=== PATIENT | male | born 1945 | race Caucasian/White ===

== ENCOUNTER 2016-08-31 08:29 | Day surgery (SDC) | payer MEDICARE, OTHER ==
[2016-08-27 12:07] LABS: HEMOGLOBIN 12.6 g/dL (13.6-17.8)
[2016-08-27 12:38] LABS: A/G RATIO 1.2 (0.7-1.9); ALBUMIN 3.8 G/DL (3.5-5.0); ALKALINE PHOSPHATASE 77 U/L (45-117); BUN (BLOOD UREA NITROGEN) 18 MG/DL (6-23); CALCIUM, SERUM 8.4 MG/DL (8.5-10.4); CHLORIDE, SERUM 104 MMOL/L (96-112); CO2 (CARBON DIOXIDE) 32 MMOL/L (24-34); GFR AFRICAN AMERICAN 103 ML/MIN (>=60); GFR NON AFRICAN AMERICAN 89 ML/MIN (>=60); GLOBULIN 3.1 G/DL (2.5-4.1); GLUCOSE, SERUM 113 MG/DL (60-99); POTASSIUM, SERUM 4.2 MMOL/L (3.5-5.3); SGOT(AST) 10 U/L (5-40); SGPT(ALT) 27 U/L (5-65); SODIUM, SERUM 142 MMOL/L (135-148); TOTAL BILIRUBIN 0.6 MG/DL (0-1.2); TOTAL PROTEIN 6.9 G/DL (6.0-8.5)
--- NOTE | ~2016-08-31 | OP ---
Record Of Operation [facility] [address] [place]. [address] NAME: JOSEFA HOGAN : 43 STATUS : [facility]#: [id number] AGE: 71 ADM/REG DATE : 08/31/16 MR#: [id number] REPORT SERV DATE: 09/02/16 DICTATED BY: JORDON HERNADEZ DATE: 09/01/16 REPORT STATUS : Draft TRANSCRIBED BY: MODL DATE: 09/01/16 DATE OF PROCEDURE: 08/31/2016 PREOPERATIVE DIAGNOSES: 1. Chronic cholecystitis with cholelithiasis. 2. History of biliary pancreatitis. POSTOPERATIVE DIAGNOSES: 1. Chronic cholecystitis with cholelithiasis. 2. History of biliary pancreatitis. PROCEDURES: 1. Laparoscopic cholecystectomy (three-site). 2. Laparoscopic intraoperative cholangiogram. DESCRIPTION OF OPERATIVE PROCEDURE: The patient was brought to the operating suite, placed in supine position, underwent satisfactory general endotracheal anesthesia without incident. The skin of the abdomen was scrubbed, prepped, and draped in usual sterile fashion. 0.5% Marcaine with epinephrine was utilized as supplemental local anesthesia. Initially, an infraumbilical incision was performed dissecting through skin and subcutaneous tissue. The umbilical fascia was grasped with a Jacquie clamp and elevated and a disposable Veress insufflation needle was inserted through the umbilical fascia into the peritoneal cavity. Intraperitoneal tip location was next ascertained using the saline hanging drop method following which CO2 was insufflated for pressures of 15 mmHg throughout the case. After adequate insufflation pressure achieved, Veress needle was removed, disposable bladed/shielded 11 mm trocar was inserted through the umbilical fascia in the peritoneal cavity. Rigid forward viewing 10 mm laparoscope was inserted. Visualization of the intraabdominal parietes revealed no evidence of injury from initial insufflation or puncture. Cursory examination of the pelvis was normal. Attention was turned to the upper abdomen where two additional 5 mm trocars. Initially, a 10 mm rigid forward-viewing laparoscope was inserted. Visualization of the intraabdominal parietes revealed no evidence of injury from initial insufflation or puncture. Cursory examination of the pelvis was normal. Attention was turned to the upper abdomen, where eventually two additional 5 mm trocars were placed under direct visualization, one just to the right of falciform ligament and an additional one in the right subcostal area in the midclavicular line. The gallbladder was grasped and elevated. It was somewhat distended with no adhesions. Dissection of triangle of Calot was successful in identifying and skeletonizing the cystic duct and cystic duct and common duct junction as well as the cystic artery. Cystic artery was divided between 5 mm Weck polymer clips and then further dissection was able to lengthen Record Of Operation [facility] [address] [place]. [address] NAME: JOSEFA HOGAN : 43 STATUS : [facility] PAT#: [id number] AGE: 71 ADM/REG DATE : 08/31/16 MR#: [id number] REPORT SERV DATE: 09/02/16 DICTATED BY: JORDON HERNADEZ DATE: 09/01/16 REPORT STATUS : Draft TRANSCRIBED BY: DEXTER DATE: 09/01/16 the cystic duct and a single clip was placed on the gallbladder side of the cystic duct. A percutaneously introduced cholangiosheath was inserted through the upper abdominal wall under direct visualization. A saline flushed Arrow cholangiocath was advanced through the cannula and inserted into the cystic duct under irrigation. It was retained with a 5 mm Weck polymer clip. Sequential fluoroscopic intraoperative cholangiography was performed showing excellent visualization of both the intra and extrahepatic biliary ductal system. Specifically, there was no ductal dilatation, no major aberrant ductal anatomy, no filling defects, and free spillage of dye into the duodenum. Incidentally noted was a proximal pancreatogram. The retaining clip was removed as well as the cholangiocath and the cystic duct was secured with three additional 5 mm Weck clips. Using spatula cautery dissection, the peritoneal attachments to the gallbladder and liver were divided. Gallbladder was removed from the subhepatic space. Hemostasis was assured. Next, the camera was switched to the 5 mm epigastric port. The gallbladder was placed inside an Endo retrieval pouch and withdrawn through the umbilicus under direct visualization. It was opened and found to contain sludge. CO2 was allowed to egress from the peritoneal cavity. No muscular bleeding was noted. The umbilicus was closed with [id number] suture of 0 Vicryl, subcutaneous tissue closed at all sites with interrupted 4-0 Vicryl, running subcuticular stitch 4-0 Vicryl for the skin. Dermabond skin adhesive placed. The patient tolerated the procedure well and was returned to PACU in stable condition. At the termination of the procedure, sponge, needle, lap, and instrument counts were correct x3. ESTIMATED BLOOD LOSS: Less than 10-15 mL. MARÍA/DEXTER Jordon Hernadez M.D. / [id number] / [id number] CC: Jordon Hernadez M.D. Record Of [address] [address] NAME: SAMIRAJOSEFA : 43 STATUS : [facility]#: [id number] AGE: 71 ADM/REG DATE : 08/31/16 MR#: [id number] REPORT SERV DATE: 09/02/16 DICTATED BY: JORDON HERNADEZ DATE: 09/01/16 REPORT STATUS : Draft TRANSCRIBED BY: DEXTER DATE: 09/01/16 Doe Krause M.D.
--- NOTE | ~2016-08-31 | OP ---
Record Of Operation [facility] [address] [place]. [address] NAME: JOSEFA HOGAN : 43 STATUS : [facility]#: [id number] AGE: 71 ADM/REG DATE : 08/31/16 MR#: [id number] REPORT SERV DATE: 09/01/16 DICTATED BY: JORDON HERNADEZ DATE: 09/01/16 REPORT STATUS : Draft TRANSCRIBED BY: MODL DATE: 09/01/16 DATE OF PROCEDURE: 08/31/2016 CONTINUATION: Initially, a 10 mm rigid forward-viewing laparoscope was inserted. Visualization of the intraabdominal parietes revealed no evidence of injury from initial insufflation or puncture. Cursory examination of the pelvis was normal. Attention was turned to the upper abdomen, where eventually two additional 5 mm trocars were placed under direct visualization, one just to the right of falciform ligament and an additional one in the right subcostal area in the midclavicular line. The gallbladder was grasped and elevated. It was somewhat distended with no adhesions. Dissection of triangle of Calot was successful in identifying and skeletonizing the cystic duct and cystic duct and common duct junction as well as the cystic artery. Cystic artery was divided between 5 mm Weck polymer clips and then further dissection was able to lengthen the cystic duct and a single clip was placed on the gallbladder side of the cystic duct. A percutaneously introduced cholangiosheath was inserted through the upper abdominal wall under direct visualization. A saline flushed Arrow cholangiocath was advanced through the cannula and inserted into the cystic duct under irrigation. It was retained with a 5 mm Weck polymer clip. Sequential fluoroscopic intraoperative cholangiography was performed showing excellent visualization of both the intra and extrahepatic biliary ductal system. Specifically, there was no ductal dilatation, no major aberrant ductal anatomy, no filling defects, and free spillage of dye into the duodenum. Incidentally noted was a proximal pancreatogram. The retaining clip was removed as well as the cholangiocath and the cystic duct was secured with three additional 5 mm Weck clips. Using spatula cautery dissection, the peritoneal attachments to the gallbladder and liver were divided. Gallbladder was removed from the subhepatic space. Hemostasis was assured. Next, the camera was switched to the 5 mm epigastric port. The gallbladder was placed inside an Endo retrieval pouch and withdrawn through the umbilicus under direct visualization. It was opened and found to contain sludge. CO2 was allowed to egress from the peritoneal cavity. No muscular bleeding was noted. The umbilicus was closed with [id number] suture of 0 Vicryl, subcutaneous tissue closed at all sites with interrupted 4-0 Vicryl, running subcuticular stitch 4-0 Vicryl for the skin. Dermabond skin adhesive placed. The patient tolerated the procedure well and was returned to PACU in stable condition. At the termination of the procedure, sponge, needle, lap, and instrument counts were correct x3. Record Of Operation [facility] [id number] [facility] [place]. [address] NAME: COLLEENVgeaJOSEFA : 43 STATUS : [facility]#: [id number] AGE: 71 ADM/REG DATE : 08/31/16 MR#: [id number] REPORT SERV DATE: 09/01/16 DICTATED BY: JORDON HERNADEZ DATE: 09/01/16 REPORT STATUS : Draft TRANSCRIBED BY: DEXTER DATE: 09/01/16 ESTIMATED BLOOD LOSS: Less than 10-15 mL. MARÍA/DEXTER Jordon Hernadez M.D. / [id number] CC: Brittany Ignacio M.D.
[~2016-08-31 08:29] MED LIST: FLOMAX4 PO; HYZAAR1 TAB PO; MOBIC15 MG PO; PROSCAR5 PO; ULTRAM50 PO
== END 2016-08-31 19:45 | disposition home or self-care (01) ==
LOC: SDC 08:29
PROVIDERS: Specialist
PROC: BF14YZZ Fluoroscopy of Gallbladder, Bile Ducts and Pancreatic Ducts using Other Contrast (ICD-10-PCS; 2016-08-31)
PROC: 0FT44ZZ Resection of Gallbladder, Percutaneous Endoscopic Approach (ICD-10-PCS; principal; 2016-08-31 11:00)
DX: K80.10 Calculus of gallbladder with chronic cholecystitis without obstruction (principal); Z87.19 Personal history of other diseases of the digestive system; I10 Essential (primary) hypertension; E66.01 Morbid (severe) obesity due to excess calories; N40.0 Benign prostatic hyperplasia without lower urinary tract symptoms; M19.90 Unspecified osteoarthritis, unspecified site; Z87.891 Personal history of nicotine dependence; Z79.1 Long term (current) use of non-steroidal anti-inflammatories (NSAID); Z79.899 Other long term (current) drug therapy; Z98.890 Other specified postprocedural states
CPT/HCPCS: 74300; 76000; 80053; 85014; 85018; 88304; 93005; J0690; J1885; J2250; J2405; J2710; J3010; Q9967